=== PATIENT | female | born 1945 | race Caucasian/White ===

== ENCOUNTER 2017-01-29 08:33 | Emergency (ER) | payer MEDICARE ==
[2017-01-29] MEDS ORDERED: 0.9 % SODIUM CHLORIDE 1,000 ML BAG IV ONE ×2 (08:44→09:50)
[2017-01-29] MEDS ORDERED: KETOROLAC 30 MG/ML VIAL IVP ONE (08:44)
[2017-01-29] MEDS ORDERED: ONDANSETRON HCL IV 4 MG/2 ML VIAL IVP ONE (08:54)
[2017-01-29 08:55] LABS: BASO % 0.5 % (0-6); EOS % 2.6 % (0-6); GRAN % 60.1 % (47-80); HEMATOCRIT 44.3 % (35.0-47.0); HEMOGLOBIN 15.1 gm/dl (11.6-16.0); LYMPH % 31.2 % (16-45); MEAN CELL VOLUME 88.2 fl (81-97); MEAN CORPUSCULAR HEMOGLOBIN 30.1 pg (27-33); MEAN CORPUSCULAR HGB CONC 34.1 g/dl (32-36); MEAN PLATELET VOLUME 10.4 fl (7.4-10.4); MONO % 5.6 % (0-9); PLATELET COUNT 288 K/uL (130-400); RED BLOOD COUNT 5.02 M/uL (3.80-5.40); RED CELL DISTRIBUTION WIDTH 14.6 % (11.5-14.5); WHITE BLOOD COUNT W/O DIFF 6.2 K/uL (4.2-12.2)
[2017-01-29 09:07] LABS: ALB/GLOB RATIO 1.6 (1.1-1.8); ALBUMIN 4.6 gm/dL (3.5-5.0); ANION GAP 12.1 (7-16); BILIRUBIN,TOTAL 0.68 mg/dL (0.2-1.3); CARBON DIOXIDE 23.9 mmol/L (22-30); CREATININE 1.1 mg/dL (0.52-1.04); TOTAL PROTEIN 7.4 gm/dL (6.3-8.2)
[2017-01-29] MEDS ORDERED: LEVOFLOXACIN/D5W 750 MG/150 ML BAG IVPB ONE (10:52)
[2017-01-29 11:07] LABS: URINE APPEARANCE SL CLOUDY; URINE BILIRUBIN NEGATIVE (NEGATIVE); URINE BLOOD NEGATIVE (NEGATIVE); URINE COLOR YELLOW; URINE GLUCOSE (UA) NEGATIVE (NEGATIVE); URINE KETONE NEGATIVE (NEGATIVE); URINE LEUKOCYTE ESTERASE NEGATIVE (NEGATIVE); URINE NITRITE NEGATIVE (NEGATIVE); URINE PROTEIN NEGATIVE (NEGATIVE); URINE UROBILINOGEN 0.2 E.U./dL (0.20 - 1.00)
[2017-01-29] MEDS ORDERED: HYDROMORPHONE HCL 1 MG/ML CPJ IVP ONE (11:20)
--- NOTE | 2017-01-29 15:18 | Emergency Department Record ---
History of Present Illness - General Chief complaint: Flank Pain Stated complaint: BACK/ABD PAIN Time Seen by Provider: 01/29/17 08:35 Source: Patient Mode of Arrival: Ambulatory Limitations: No limitations - History of Present Illness Initial comments: pt has severe l flank pain all week that is getting worse. it wraps around her abdomen. she does not recall injury and has never had any thing like this before. she saw her family dr 2 days ago and had a neg ct with contrast of the abd Onset/Timin -: Days(s) Location: LLQ Radiation: L flank Severity: Moderate Severity scale (1-10): 10 Quality: Aching Consistency: Constant Improves with: None Worsens with: None Patient : No Associated Symptoms: Nausea/vomiting - Related Data Home Medications Medication Instructions Recorded Confirmed Last Taken Ascorbate Calcium/Bioflavonoid 1 each PO DAILY 01/29/17 01/29/17 1 Day Ago [[place]-C 500 mg Tablet] ~01/28/17 Tramadol HCl [Ultram] 50 mg PO Q8H PRN 01/29/17 01/29/17 01/29/17 Previous Rx's Medication Instructions Recorded Hydrocodone/Acetaminophen [[place] 1 each PO QID #20 tablet 01/29/17 5-325 Tablet] Ondansetron [Zofran Odt] 4 mg PO Q8H #7 tab.rapdis 01/29/17 Prednisone [Prednisone 10Mg] 10 mg PO ASDIR #30 tab 01/29/17 Valacyclovir HCl [Valacyclovir] 1,000 mg PO TID #21 tablet 01/29/17 Allergies Allergy/AdvReac Type Severity Reaction Status Date / Time No Known Allergies Allergy HYPERSENSIT Verified 01/29/17 08:43 IVITY Travel Screening - Travel/Exposure Within Last 30 Days Have you traveled within the last 30 days?: No - Travel/Exposure Within Last Year Have you traveled outside the [place] in the last year?: No - Additonal Travel Details Have you been exposed to anyone with a communicable illness?: No - Travel Symptoms Symptom Screening: None Review of Systems Reviewed: No additional complaints except as noted below Constitutional: Reports: As per HPI. Denies: Chills, Fever, Malaise, Night sweats, Weakness, Weight change Eyes: Reports: As per HPI. Denies: Eye discharge, Eye pain, Photophobia, Vision change ENT: Reports: As per HPI. Denies: Congestion, Dental pain, Ear pain, Epistaxis , Hearing loss, Throat pain Respiratory: Reports: As per HPI. Denies: Cough, Dyspnea, Hemoptysis, Stridor, Wheezes Cardiovascular: Reports: As per HPI. Denies: Arrhythmia, Chest pain, Dyspnea on exertion, Edema, Murmurs, Orthopnea, Palpitations, Paroxysmal nocturnal dyspnea, Rheumatic Fever, Syncope Endocrine: Reports: As per HPI. Denies: Fatigue, Heat or cold intolerance, Polydipsia, Polyuria Gastrointestinal: Reports: As per HPI. Denies: Abdominal pain, Constipation, Diarrhea, Hematemesis, Hematochezia, Melena, Nausea, Vomiting Genitourinary: Reports: As per HPI. Denies: Abnormal menses, Discharge, Dyspareunia, Dysuria, Frequency, Hematuria, Incontinence, Retention, Urgency Musculoskeletal: Reports: As per HPI. Denies: Arthralgia, Back pain, Gout, Joint swelling, Myalgia, Neck pain Skin: Reports: As per HPI. Denies: Bruising, Change in color, Change in hair/ nails, Lesions, Pruritus, Rash Neurological: Reports: As per HPI. Denies: Abnormal gait, Confusion, Headache, Numbness, Paresthesias, Seizure, Tingling, Tremors, Vertigo, Weakness Psychiatric: Reports: As per HPI. Denies: Anxiety, Auditory hallucinations, Depression, Homicidal thoughts, Suicidal thoughts, Visual hallucinations Hematological/Lymphatic: Reports: As per HPI. Denies: Anemia, Blood Clots, Easy bleeding, Easy bruising, Swollen glands Past Medical History - SOCIAL HISTORY Smoking Status: Light tobacco smoker (<10/day) Alcohol Use: None Drug Use: None - RESPIRATORY Hx Respiratory Disorders: No - CARDIOVASCULAR Hx Cardio Disorders: No - NEURO Hx Headaches: Yes - GI Hx GI Disorders: No - ENDOCRINE Hx Diabetes: No Hx Thyroid Disease: No - MUSCULOSKELETAL Hx Arthritis: Yes Family Medical History Any Significant Family History?: Yes Physical Exam - General General Appearance: Alert, Oriented x3, Cooperative, Moderate distress - Head Head exam: Normal inspection - Eye Eye exam: Normal appearance, PERRL, EOMI Pupils: Normal accommodation - ENT ENT exam: Normal exam, Mucous membranes moist, Normal external ear exam, Normal orophraynx Ear exam: Normal external inspection. negative: External canal tenderness Nasal Exam: Normal inspection. negative: Discharge, Sinus tenderness Mouth exam: Normal external inspection, Tongue normal Teeth exam: Normal inspection. negative: Dental caries Throat exam: Normal inspection. negative: Tonsillar erythema, Tonsillar exudate - Neck Neck exam: Normal inspection, Full ROM. negative: Tenderness - Respiratory Respiratory exam: Normal lung sounds bilaterally. negative: Respiratory distress - Cardiovascular Cardiovascular Exam: Normal rhythm, Normal heart sounds, Tachycardia - GI/Abdominal GI/Abdominal exam: Soft, Normal bowel sounds. negative: Tenderness - Rectal Rectal exam: Deferred - exam: Deferred - Extremities Extremities exam: Normal inspection, Full ROM, Normal capillary refill. negative: Tenderness - Back Back exam: Reports: Full ROM, Tenderness, Vertebral tenderness. Denies: Muscle spasm, Rash noted - Neurological Neurological exam: Alert, CN II-XII intact, Normal gait, Oriented X3 - Psychiatric Psychiatric exam: Normal affect, Normal mood - Skin Skin exam: Dry, Intact, Normal color, Warm Course Vital Signs 01/29/17 01/29/17 01/29/17 08:36 10:30 13:36 Temperature 97.5 F L 98.4 F Pulse Rate 110 H Pulse Rate [ 74 68 Pulse Ox Probe] Respiratory 22 16 18 Rate Blood Pressure 131/102 Blood Pressure 136/87 141/106 [Left Arm] Pulse Ox 100 100 100 01/29/17 14:42 Temperature Pulse Rate Pulse Rate [ 67 Pulse Ox Probe] Respiratory 18 Rate Blood Pressure Blood Pressure 122/71 [Left Arm] Pulse Ox 97 - Reevaluation(s) Reevaluation #1: 01/29/17 15:37 pt was in significant pain and since she has become worse the ct was repeated with no new findings.i discussed this with the radiologist and we felt mri would be the best assessment for the severe pain. mri revealed degenerative changes and significant foramen stenosis. pt was here for several hours. when i went back to reassess her back a rash had broke out that was not there on first assessment that fits a pattern for shingles Medical Decision Making - Lab Data Result diagrams: 01/29/17 08:45 01/29/17 08:45 Lab Results 01/29/17 01/29/17 01/29/17 Range/Units 08:45 08:45 11:05 WBC 6.2 (4.2-12.2) K/uL RBC 5.02 (3.80-5.40) M/uL Hgb 15.1 (11.6-16.0) gm/dl Hct 44.3 (35.0-47.0) % MCV 88.2 (81-97) fl MCH 30.1 (27-33) pg MCHC 34.1 (32-36) g/dl RDW 14.6 H (11.5-14.5) % Plt Count 288 (130-400) K/uL MPV 10.4 (7.4-10.4) fl Gran % 60.1 (47-80) % Lymphocytes % 31.2 (16-45) % Monocytes % 5.6 (0-9) % Eosinophils % 2.6 (0-6) % Basophils % 0.5 (0-6) % Sodium 138 (136-145) mmol/L Potassium 4.2 (3.5-5.1) mmol/L Chloride 102 (98-107) mmol/L Carbon Dioxide 23.9 (22-30) mmol/L Anion Gap 12.1 (7-16) BUN 12 (7-17) mg/dL Creatinine 1.1 H (0.52-1.04) mg/dL Estimated GFR 52 ml/min Random Glucose 145 H (70-110) mg/dL Calcium 9.8 (8.5-10.1) mg/dL Total Bilirubin 0.68 (0.2-1.3) mg/dL AST 30 (14-36) U/L ALT 43 (9-52) U/L Alkaline Phosphatase 72 (38-126) U/L Total Protein 7.4 (6.3-8.2) gm/dL Albumin 4.6 (3.5-5.0) gm/dL Globulin 2.8 (1.4-4.8) gm/dL Albumin/Globulin Ratio 1.6 (1.1-1.8) Urine Color Yellow Urine Appearance Sl cloudy Urine pH 8.0 (5.0-8.0) Ur Specific [place] 1.010 (1.002-1.030) Urine Protein Negative (NEGATIVE) Urine Glucose (UA) Negative (NEGATIVE) Urine Ketones Negative (NEGATIVE) Urine Blood Negative (NEGATIVE) Urine Nitrite Negative (NEGATIVE) Urine Bilirubin Negative (NEGATIVE) Urine Urobilinogen 0.2 (0.20 - 1.00) E.U./dL Ur Leukocyte Esterase Negative (NEGATIVE) Disposition Disposition: Discharge Clinical Impression: DJD (degenerative joint disease), lumbosacral Shingles Qualifiers: Herpes zoster complications: without complications Qualified Code(s): B02.9 - Zoster without complications Disposition: Home, Self-Care Condition: (1) Good Instructions: Shingles (ED), Arthritis (ED) Additional Instructions: follow up with family doctor this week. return sooner if worse Prescriptions: Hydrocodone/Acetaminophen [[place] 5-325 Tablet] 1 each PO QID #20 tablet Ondansetron [Zofran Odt] 4 mg PO Q8H #7 tab.rapdis Prednisone [Prednisone 10Mg] 10 mg PO ASDIR #30 tab Valacyclovir HCl [Valacyclovir] 1,000 mg PO TID #21 tablet Forms: Patient Portal Access Quality - Quality Measures Quality Measures: N/A - Blood Pressure Screening Blood Pressure Classification: Hypertensive Reading Systolic Measurement: 131 Diastolic Measurement: 102 Screening for High Blood Pressure: < First Hypertensive BP, F/U Documented > [ [id number]] First Hypertensive Follow-up Interventions: Follow-up with rescreen GT 1 day and LT 4 weeks.
--- NOTE | 2017-01-31 09:26 | CT SCAN REPORT ---
EXAM: ABDOMEN AND PELVIS CT WITHOUT CONTRAST HISTORY: ACUTE LEFT LOWER QUADRANT ABDOMINAL PAIN FOR FOUR DAYS. TECHNIQUE: Contiguous axial images from the lung bases to the symphysis pubis were obtained without IV contrast. Oral contrast is present. Comparison: Abdomen and pelvis CT 01/27/17. FINDINGS: The lung bases are clear. Evaluation of the solid abdominal visceral organs is compromised due to lack of IV contrast, however, the liver and spleen are unremarkable. The kidneys reveal no calculi, hydronephrosis, or perinephric fat stranding. Thickening of the left adrenal likely due to benign hyperplasia. Normal right adrenal. The pancreas and gallbladder are unremarkable. The visualized loops of small and large bowel are of normal caliber with normal appendix. Moderate fecal material throughout the colon as before. No bowel wall thickening. Mild to moderate aortoiliac calcification. No free intraperitoneal fluid or adenopathy. The uterus is present. No pelvic mass. Tiny fat containing right inguinal hernia. The abdominal wall is unremarkable. No suspicious lytic or blastic osseous lesions. Mild sigmoid colon diverticulosis without evidence of diverticulitis. IMPRESSION: 1. NO RENAL CALCULI, HYDRONEPHROSIS, OR PERINEPHRIC FAT STRANDING. NO ACUTE PROCESS OF THE ABDOMEN OR PELVIS WITH NO CHANGE FROM PRIOR STUDY. 2. MODERATE FECAL MATERIAL THROUGHOUT THE COLON. JOB NUMBER: [id number] MTDD
--- NOTE | 2017-01-31 09:43 | MRI REPORT ---
EXAM: MRI OF THE LUMBAR SPINE WITHOUT CONTRAST HISTORY: ACUTE SEVERE LOW BACK PAIN CENTERED OVER THE L4 VERTEBRAL BODY. LOSS OF RANGE OF MOTION FOR FIVE DAYS. TECHNIQUE: T1 and T2 axial and sagittal, STIR sagittal, and T2 coronal images of the lumbar spine were obtained. Comparison: Abdomen and pelvis CT 01/29/17. FINDINGS: Five lumbar segments. The vertebral body stature is preserved. There is moderate degenerative disk disease at L5-S1 manifested by loss of signal and stature and end plate osteophytes. Mild disk disease at the remaining levels. 3 mm of anterolisthesis of L4 upon L5 due to the severe facet arthropathy. Normal conus. At the L1-L2 through L3-L4 levels: No disk protrusion, central canal or neural foraminal stenosis. At the L4-L5 level: Grade 1 anterolisthesis of L4 upon L5 with slight uncovering of disk material. Severe facet arthropathy. No central canal stenosis. There is moderate right and moderate left neural foraminal stenosis. At the L5-S1 level: Small posterior disk osteophyte complex excentric to the left. The facets are unremarkable. No central canal stenosis. There is moderate right and moderate to severe left neural foraminal stenosis. Minimal osteoarthritic change of the sacroiliac joints. The visualized retroperitoneum is unremarkable. IMPRESSION: 1. FIVE LUMBAR SEGMENTS. MULTILEVEL DEGENERATIVE DISK DISEASE MOST PRONOUNCED AT L5-S1. 2. GRADE 1 ANTEROLISTHESIS OF L4 UPON L5 DUE TO SEVERE FACET ARTHROPATHY. 3. NO CENTRAL CANAL STENOSIS AT ANY LEVEL. 4. VARYING DEGREES OF NEURAL FORAMINAL STENOSIS MOST PRONOUNCED AT L5-S1 ON THE LEFT. JOB NUMBER: [id number] MTDD
== END 2017-01-29 16:00 | disposition home or self-care (01) ==
LOC: ER 08:33
DX: M47.897 Other spondylosis, lumbosacral region (principal); R10.32 Left lower quadrant pain; R11.2 Nausea with vomiting, unspecified; B02.9 Zoster without complications
CPT/HCPCS: 99284 ×2; 96374; 96375; 85025; 80053; 81003; 72148; 74176; J1885; J1170; J7030

== ENCOUNTER 2017-02-17 12:25 | Day surgery (SDC) | payer MEDICARE ==
[~2017-02-17 12:25] MED LIST: FENTANYL PF 100MCG/2ML VIAL IV ONE; LIDOCAINE 2% MDV (20MG/ML) 20ML VIAL IV ONE; PROPOFOL 10 MG/ML VIAL IV ONE
--- NOTE | 2017-02-18 14:20 | Operative Note ---
DATE OF SURGERY: 02/17/2017 OPERATION: COLONOSCOPY with cold forceps polypectomy. PREOPERATIVE DIAGNOSIS: Hemoccult-positive stool. POSTOPERATIVE DIAGNOSES: 1. Sigmoid colon polyp. 2. Mild sigmoid diverticulosis. PREPARATION QUALITY: Excellent. ESTIMATED BLOOD LOSS: Minimal. SPECIMENS: Sigmoid colon polyp. COMPLICATIONS: None apparent. PROCEDURE: After informed consent was obtained from the patient, she was placed in the left lateral decubitus position in the endoscopy suite. She was sedated and monitored by the department of anesthesia. Digital rectal exam was unremarkable. A well-lubricated [id number] colonoscope was inserted into the rectum and advanced to the cecum. Preparation quality was excellent. The ileocecal valve, appendiceal orifice, cecum, ascending colon, transverse colon, and descending colon were free of inflammatory changes, mass lesions, or polyps. There was a diminutive sigmoid colon polyp which was removed in piecemeal fashion with a cold forceps. Minimal bleeding was noted. There were a few scattered sigmoid diverticula but no mass lesions or polyps were seen. Forward and J-turn views of the rectum and anorectum were unremarkable. The endoscope was straightened, the rectal ampulla deflated, and the endoscope was removed. RECOMMENDATIONS: The patient should follow a high-fiber diet and use a fiber supplement. Based on lack of obvious findings that would explain her heme positivity, I have recommended she undergo an upper endoscopy at some point in the near future. As always, thank you for allowing me to participate in the healthcare of your patients. CC: Kai MACK
== END 2017-02-17 14:35 | disposition home or self-care (01) ==
LOC: HOP 12:25
PROVIDERS: ATTEND Internal Medicine Gastroenterology
DX: D12.5 Benign neoplasm of sigmoid colon (principal); R10.32 Left lower quadrant pain
CPT/HCPCS: 45380; 00810; J3010